=== PATIENT | female | born 1960 | race Asian ===

== ENCOUNTER → 2016-05-14 | Outpatient (CLI) | payer BC | LOC: WI 08:23 | PROVIDERS: ATTEND Physician Assistant | DX: N64.4 Mastodynia (principal) | CPT/HCPCS: 76642; G0204; 77066 ==

== ENCOUNTER 2018-11-07 15:42 | Inpatient (IN) | payer SELFPAY ==
--- NOTE | 2018-11-07 16:06 | ER Document Report ---
ED Medical Screen (RME) - General Stated Complaint: WEAKNESS Time Seen by Provider: 11/07/18 15:59 Primary Care Provider: DEBBIE PRADO PA [Primary Care Provider] - Follow up as needed Mode of Arrival: Medic Information source: Relative, Emergency Med Personnel Notes: This 58-year-old female with history of stroke diabetes sleep apnea and heart murmur presents to the emergency department with complaints of weakness. reports that she was not feeling good this morning. She reports she had leg pain this morning. He reports She is not taking any medications because they do not have any insurance. He reports she does have history of leg pain which she would place heating pads on. Patient is responding to all questions but looks like she does not feel well. EMS BGL 281. Lactic 2.0. I have greeted and performed a rapid initial assessment of this patient. A comprehensive ED assessment and evaluation of the patient, analysis of test results and completion of the medical decision making process will be conducted by additional ED providers. Dictation of this chart was performed using voice recognition software; therefore, there may be some unintended grammatical errors. TRAVEL OUTSIDE OF THE [place] IN LAST 30 DAYS: No - Related Data Allergies/Adverse Reactions: No Known Allergies Allergy (Unverified 03/30/11 05:21) Past Medical History - Past Medical History Cardiac Medical History: Reports: Hx Hypertension Pulmonary Medical History: Denies: Hx Tuberculosis Neurological Medical History: Reports: Hx Cerebrovascular Accident - July 2011 Endocrine Medical History: Reports: Hx Diabetes Mellitus Type 2 Past Surgical History: Denies: Hx Pacemaker - Immunizations Hx Diphtheria, Pertussis, Tetanus Vaccination: Yes Doctor's Discharge - Discharge Referrals: DEBBIE PRADO PA [Primary Care Provider] - Follow up as needed
[2018-11-07 16:28] LABS: VENOUS BLOOD BASE EXCESS 1.6 mmol/L; VENOUS BLOOD HCO3 26.5 mmol/L (20-32); VENOUS BLOOD PCO2 42.9 mmHg (35-63); VENOUS BLOOD PH 7.41 (7.30-7.42)
[2018-11-07 16:30] LABS: ABSOLUTE BASOPHILS # (AUTO) 0.1 10^3/uL (0.0-0.2); ABSOLUTE EOSINOPHILS # (AUTO) 0.2 10^3/uL (0.0-0.6); ABSOLUTE LYMPHOCYTES (AUTO) 2.1 10^3/uL (0.5-4.7); ABSOLUTE MONOCYTES (AUTO) 0.4 10^3/uL (0.1-1.4); ABSOLUTE NEUT (AUTO) 3.5 10^3/uL (1.7-8.2); HEMATOCRIT 41.9 % (36.0-47.0); HEMOGLOBIN 14.2 g/dL (12.0-15.5); LYMPHOCYTES % (AUTO) 33.3 % (13-45); MEAN CORPUSCULAR HGB CONC 33.9 g/dL (32.0-36.0); MEAN CORPUSCULAR VOLUME 89 fl (80-97); MONOCYTES % (AUTO) 7.1 % (3-13); PLATELET COUNT 275 10^3/uL (150-450); RED BLOOD COUNT 4.73 10^6/uL (3.72-5.28); RED CELL DISTRIBUTION WIDTH 13.3 % (11.5-14.0); SEGMENTED NEUTROPHILS % (AUTO) 55.6 % (42-78); TOTAL CELLS COUNTED % (AUTO) 100 %; WHITE BLOOD COUNT 6.3 10^3/uL (4.0-10.5)
[2018-11-07 16:37] LABS: INTERNATIONAL RATION (INR) 1.05; PROTHROMBIN TIME 13.7 SEC (11.4-15.4)
[2018-11-07 16:47] LABS: ALBUMIN 3.9 g/dL (3.5-5.0); ALKALINE PHOSPHATASE 80 U/L (38-126); ANION GAP 11 (5-19); ASPARTATE AMINO TRANSFERASE 49 U/L (14-36); BILIRUBIN,DIRECT 0.1 mg/dL (0.0-0.4); BILIRUBIN,TOTAL 0.6 mg/dL (0.2-1.3); BLOOD UREA NITROGEN 14 mg/dL (7-20); CALCIUM 9.7 mg/dL (8.4-10.2); CARBON DIOXIDE 27 mmol/L (22-30); CHLORIDE 101 mmol/L (98-107); GLUCOSE 256 mg/dL (75-110); POTASSIUM 3.4 mmol/L (3.6-5.0); TOTAL PROTEIN 7.1 g/dL (6.3-8.2)
[2018-11-07 17:56] LABS: APPEARANCE,URINE SLIGHTLY-CLOUDY; BILIRUBIN,URINE NEGATIVE (NEGATIVE); COLOR,URINE YELLOW; GLUCOSE, URINE >=500 mg/dL (NEGATIVE); KETONES,URINE TRACE mg/dL (NEGATIVE); LEUKOCYTE ESTERASE,URINE TRACE (NEGATIVE); NITRITE,URINE NEGATIVE (NEGATIVE); PROTEIN,URINE 30 mg/dL (NEGATIVE); URINE SPECIFIC GRAVITY 1.017; UROBILINOGEN,URINE NEGATIVE mg/dL (<2.0)
[2018-11-07] MEDS ORDERED: NORMAL SALINE 1000 ML 1,000 ML IV ONE (18:00)
[2018-11-07] MEDS ORDERED: HYDRALAZINE HCL 50 MG TABLET PO ONE (18:15)
[2018-11-07] MEDS ORDERED: ATENOLOL 50 MG TABLET PO ONE (18:15)
--- NOTE | 2018-11-07 18:30 | RADIOLOGY REPORT (SQ) ---
EXAM DESCRIPTION: CT HEAD WITHOUT COMPLETED DATE/TIME: 11/07/2018 6:12 pm REASON FOR STUDY: dizziness, difficulty walking COMPARISON: 09/27/2011 TECHNIQUE: Axial images acquired through the brain without intravenous contrast. Images reviewed wit h bone, brain and subdural windows. Images stored on PACS. All CT scanners at this facility use dose modulation, iterative reconstruction, and/or weight based d osing when appropriate to reduce radiation dose to as low as reasonably achievable (ALARA). [facility]: Dose Right [facility]: CareDose [facility]: Dose Right [facility]: Teradose 4D [facility]: [employer] RADIATION DOSE: CT Rad equipment meets quality standard of care and radiation dose reduction techniq ues were employed. CTDIvol: 53.2 mGy. DLP: 991 mGy-cm.. LIMITATIONS: None. FINDINGS: VENTRICLES: Normal size and contour. CEREBRUM: No hemorrhage. No midline shift. Stable appearance of the white matter. No evidence for ac triny infarction. CEREBELLUM: No masses. No hemorrhage. No alteration of density. No evidence for acute infarction. EXTRA-AXIAL SPACES: No fluid collections. ORBITS AND GLOBE: No intra- or extraconal masses. Normal contour of globe without masses. CALVARIUM: No fracture. PARANASAL SINUSES: No fluid or mucosal thickening. SOFT TISSUES: No mass or hematoma. OTHER: No other significant finding. IMPRESSION: NO ACUTE INTRACRANIAL FINDINGS. EVIDENCE OF ACUTE STROKE: NO. TECHNICAL DOCUMENTATION: JOB ID: [id number] Quality ID # [id number]: Final reports with documentation of one or more dose reduction techniques (e.g., Au tomated exposure control, adjustment of the mA and/or kV according to patient size, use of iterative reconstruction technique) 2010 [employer]- All Rights Reserved Reading location - IP/workstation name: [employer]
[2018-11-07 21:03] LABS: ARTERIAL BLOOD BASE EXCESS 2.1 mmol/L; ARTERIAL BLOOD FIO2 ROOM AIR; ARTERIAL BLOOD H2CO3 1.25 mmol/L (1.05-1.35); ARTERIAL BLOOD HCO3 26.7 mmol/L (20-24); ARTERIAL BLOOD O2 SATURATION 95.8 % (94-98); ARTERIAL BLOOD PCO2 41.6 mmHg (35-45); ARTERIAL BLOOD PH 7.43 (7.35-7.45); ARTERIAL BLOOD PO2 77.7 mmHg (80-100)
--- NOTE | 2018-11-07 21:52 | EKG REPORT ---
SEVERITY:- ABNORMAL ECG - SINUS RHYTHM VENTRICULAR PREMATURE COMPLEX LEFT VENTRICULAR HYPERTROPHY : Confirmed by: Kumar Magallon MD 07-Nov-2018 21:51:29
--- NOTE | 2018-11-07 22:47 | ER Document Report ---
ED General - General Chief Complaint: General Weakness Stated Complaint: WEAKNESS Time Seen by Provider: 11/07/18 15:59 Primary Care Provider: DEBBIE PRADO PA [PHYSICIAN SOCIAL MEDIA MARKETING MANAGER] - Follow up as needed Mode of Arrival: Medic Notes: 58-year-old female presents emergency department stating that she woke up dizzy and having double vision this morning and has been getting progressively worse. Patient states that the seeing double actually improves when she puts on her glasses but then it gets worse again. Patient states she is so dizzy she cannot walk. Significant other has brought her in because she has had strokes in the past and this is similar to the way she acted with a stroke in 2012 but somewhat less severe. Patient does have right-sided facial droop however the patient and the significant other state that this is normal and unchanged from baseline. Of note the patient has not seen a primary care physician in over a year and has been slowly running out of all of her medications that she takes for her diabetes, hypertension and hyperlipidemia. TRAVEL OUTSIDE OF THE [place] IN LAST 30 DAYS: No - Related Data Allergies/Adverse Reactions: No Known Allergies Allergy (Unverified 03/30/11 05:21) Past Medical History - General Information source: Patient, Relative, Friend, Emergency Med Personnel - Social History Smoking Status: Former Smoker Chew tobacco use (# tins/day): No Frequency of alcohol use: None Drug Abuse: None Family History: CVA Patient has suicidal ideation: No Patient has homicidal ideation: No - Past Medical History Cardiac Medical History: Reports: Hx Hypertension Pulmonary Medical History: Denies: Hx Tuberculosis Neurological Medical History: Reports: Hx Cerebrovascular Accident - July 2011 Endocrine Medical History: Reports: Hx Diabetes Mellitus Type 2 Past Surgical History: Denies: Hx Pacemaker - Immunizations Hx Diphtheria, Pertussis, Tetanus Vaccination: Yes Hx Pneumococcal Vaccination: 08/02/11 Review of Systems - Review of Systems Constitutional: See HPI, Weakness EENT: See HPI Cardiovascular: See HPI Respiratory: No symptoms reported Neurological/Psychological: See HPI -: Yes All other systems reviewed and negative Physical Exam - Vital signs Vitals: Resp Pulse Ox 7 L 100 11/07/18 16:03 11/07/18 16:03 Interpretation: Hypertensive - Notes Notes: GENERAL: Alert, interacts well. No acute distress. Obese HEAD: Normocephalic, atraumatic EYES: Pupils equal, round and reactive to light, extraocular movements intact. ENT: Oral mucosa moist, tongue midline. NECK: Full range of motion, supple, trachea midline. LUNGS: Clear to auscultation bilaterally, no wheezes, rales or rhonchi, no respiratory distress. HEART: Regular rate and rhythm, no murmurs, gallops, rubs. ABDOMEN: Soft, nontender, nondistended, bowel sounds present in all 4 quadrants. EXTREMITIES: Moves all 4 extremities spontaneously, no edema, radial and dorsalis pedis pulses 2/4 bilaterally. No cyanosis. NEUROLOGICAL: Alert and oriented x3, normal speech, slight right-sided facial droop but normalizes with smile, no disconjugate gaze, 5 out of 5 muscle strength in all 4 extremities, biceps and patellar DTRs 2+ bilaterally. Unable to ambulate more than a few steps and falls to the right even when walking with a walker. PSYCH: Normal mood, normal affect. SKIN: Warm, Dry, normal turgor, no rashes or lesions noted. Course - Re-evaluation Re-evalutation: 11/07/18 22:45 CBC unremarkable, coags normal, venous blood gas unremarkable, CMP shows elevated glucose otherwise unremarkable, troponin indeterminate x2 is 0.34 and 0.38, urinalysis shows glucose and trace ketones but no true signs of infection, it appears contaminated with 8 squamous epithelial cells and trace leukocyte esterase. Blood and urine cultures are pending. CT scan was performed shows no sign of acute stroke. EKG is nonischemic. We did get the patient's glasses as the family member stated that all of her symptoms resolved when she wore her glasses however when we tried to have her put her glasses on she was very difficult to arouse, did not awaken to painful stimuli until we got an ABG. At that point the patient became more awake. As she slowly woke up more more we did try to ambulate her and she was unable to ambulate more than a few steps without falling to her side even while using a walker and wearing her glasses. ABG was obtained to make sure that she did not have any underlying CO2 retention. This was relatively normal. Accu-Chek did not reveal any hypoxia. At this point I am not certain why the patient has had 2 unresponsive episodes while in the emergency department and why she is having difficulty ambulating. I have discussed the patient with Dr. Del Cid who agrees to admit the patient to his service in the IMCU for further investigation of her altered mental status, fluctuating level of consciousness and difficulty ambulating. - Vital Signs Vital signs: Temp Pulse Resp BP Pulse Ox 26 H 186/114 H 98 11/07/18 22:02 11/07/18 22:02 11/07/18 22:02 - Laboratory Result Diagrams: 11/07/18 16:00 11/07/18 16:00 Laboratory results interpreted by me: 11/07/18 11/07/18 11/07/18 16:00 16:25 17:31 ABG pO2 ABG HCO3 ABG Total CO2 Potassium 3.4 L Glucose 256 H POC Glucose 243 H AST 49 H Urine Protein 30 H Urine Glucose (UA) >=500 H Urine Ketones TRACE H Ur Leukocyte Esterase TRACE H 11/07/18 11/07/18 20:16 20:55 ABG pO2 77.7 L ABG HCO3 26.7 H ABG Total CO2 28.0 H Potassium Glucose POC Glucose 207 H AST Urine Protein Urine Glucose (UA) Urine Ketones Ur Leukocyte Esterase - EKG Interpretation by Me Additional EKG results interpreted by me: 11/07/18 22:47 EKG shows sinus rhythm at a rate of 83, normal axis, normal intervals, LVH, 1 PVC, no ST segment elevations or depressions per my interpretation. Discharge - Discharge Clinical Impression: Dizziness, Unable to ambulate Altered mental status Qualifiers: Altered mental status type: somnolence Qualified Code(s): R40.0 - Somnolence Condition: Fair Disposition: ADMITTED INPATIENT Admitting Provider: Maria Eugenia (Hospitalist) Unit Admitted: [facility] Referrals: DEBBIE PRADO PA [PHYSICIAN SOCIAL MEDIA MARKETING MANAGER] - Follow up as needed
[2018-11-07] MEDS ORDERED: MAGNESIUM HYDROXIDE SUSP 30 ML UDCUP PO PRN (23:36)
[2018-11-07] MEDS ORDERED: TEMAZEPAM 15 MG CAPSULE PO PRN (23:36)
[2018-11-07] MEDS ORDERED: TRAMADOL HCL 50 MG TABLET PO PRN (23:36)
[2018-11-07] MEDS ORDERED: DOCUSATE SODIUM 100 MG CAPSULE PO PRN (23:36)
[2018-11-07] MEDS ORDERED: ONDANSETRON HCL INJ/PF 4 MG/2 ML SDV IV PRN (23:36)
[2018-11-07] MEDS ORDERED: LABETALOL HCL INJ 20 MG/4 ML DISP.SYRIN IV PRN (23:36)
[2018-11-07] MEDS ORDERED: NALBUPHINE HCL INJ 10 MG/1 ML AMPULE IV PRN (23:44)
[2018-11-07] MEDS ORDERED: DEXTROSE 40% GEL 15 GM TUBE PO PRN ×2 (23:45)
[2018-11-07] MEDS ORDERED: GLUCAGON,HUMAN RECOMB 1 MG INJ IM PRN (23:45)
[2018-11-07] MEDS ORDERED: DEXTROSE 50%-WATER 25 GM/50 ML DISP.SYRIN IV PRN ×2 (23:45)
[2018-11-08] MEDS ORDERED: NALBUPHINE HCL INJ 10 MG/1 ML AMPULE IV PRN ×2 (00:29)
[2018-11-08 00:58] LABS: FREE T3 3.11 pg/mL (2.77-5.27); FREE T4 (FREE THYROXINE) 1.12 ng/dL (0.78-2.19)
[2018-11-08 02:30] LABS: CREATINE KINASE MB 0.37 ng/mL (<4.55); TROPONIN I 0.037 ng/mL
[2018-11-08] MEDS ORDERED: SCOPOLAMINE HYDROBROMIDE 1.5 MG PATCH.TD72 TD ONE (05:42)
--- NOTE | 2018-11-08 05:50 | PDOC H&P ---
History of Present Illness Admission Date/PCP: 11/07/2018 22:32 No local PCP Patient complains of: Dizziness History of Present Illness: CAMPOS BROUSSARD is a 58 year old female who presented to the emergency room with acute dizziness. The patient and her family admit that she woke this morning with dizziness and unsteadiness with inability to use her walker due to falling. Her dizziness was accompanied by double vision, moderate generalized weakness, intermittent leg pains and transient episodes of decreased responsiveness. She denies other accompanying or associated signs and symptoms. She admits similar symptoms previously with strokes. She denies identification of any aggravating or ameliorating factors for her weakness, but admits her double vision improves when she uses her prescription glasses. In the emergency room her unsteadiness with attempts at standing or walking with her walker persisted and she had several episodes of decreased responsiveness lasting for several minutes and resolving spontaneously. Her CT scan showed no acute intracranial hemorrhage or evidence of acute stroke. Her chemistry evaluation and CBC were unremarkable with the exception of an elevated blood glucose. ABGs revealed mild hypoxia. Patient was subsequently admitted to the hospital for further evaluation and treatment per the stroke protocol on IM. Past Medical History Cardiac Medical History: Reports: Hyperlipidema, Hypertension, Heart Murmur Denies: Coronary Artery Disease, Myocardial Infarction Pulmonary Medical History: Reports: Sleep Apnea Denies: Asthma, Chronic Obstructive Pulmonary Disease (COPD), Respiratory Failure, Tuberculosis EENT Medical History: Denies: Cataracts, Ears - Hearing aids Neurological Medical History: Reports: Ischemic CVA Denies: Hemorrhagic CVA, Seizures Endocrine Medical History: Reports: Diabetes Mellitus Type 2 Denies: Diabetes Mellitus Type 1, Hyperthyroidism, Hypothyroidism Renal/ Medical History: Denies: Chronic Kidney Disease, Nephrolithiasis Malignancy Medical History: Reports: None GI Medical History: Denies: Cirrhosis, Crohn's Disease, Hepatitis, Ulcerative Colitis Musculoskeltal Medical History: Denies: Arthritis, Gout Skin Medical History: Denies: Eczema, Psoriasis Psychiatric Medical History: Denies: Alcohol Dependency, Substance Abuse, Tobacco Dependency Traumatic Medical History: Reports: None Hematology: Denies: Anemia, Bleeding Tendencies Infectious Medical History: Reports: None Past Surgical History Past Surgical History: Reports: None Social History Information Source: Patient, Relative Lives with: Spouse/Significant other Smoking Status: Never Smoker Frequency of Alcohol Use: None Hx Recreational Drug Use: No Drugs: None Hx Prescription Drug Abuse: No - Advance Directive Resuscitation Status: Full Code Surrogate healthcare decision maker:: Dylan Broussard Family History Family History: DM, Hypertension. denies: CAD, Malignancy Parental Family History Reviewed: Yes Children Family History Reviewed: No Sibling(s) Family History Reviewed.: Yes Medication/Allergy Home Medications: Acetaminophen [Arthritis Pain Relief] 650 mg PO DAILYP PRN 11/08/18 Aspirin [Aspir-Low] 81 mg PO DAILY 11/08/18 Gabapentin [Neurontin 100 mg Capsule] 100 mg PO BIDP PRN 11/08/18 Metformin HCl 500 mg PO BID 11/08/18 Allergies/Adverse Reactions: No Known Allergies Allergy (Unverified 03/30/11 05:21) Review of Systems Constitutional: PRESENT: as per HPI, weakness. ABSENT: chills, fever(s) Eyes: PRESENT: as per HPI, visual disturbances - Double vision. ABSENT: other - Eye pain Ears: ABSENT: hearing changes, other - Ear pain Nose, Mouth, and Throat: ABSENT: mouth pain, sore throat Cardiovascular: ABSENT: chest pain, palpitations Respiratory: ABSENT: cough, dyspnea Gastrointestinal: ABSENT: abdominal pain, constipation, diarrhea, nausea, vomiting Genitourinary: ABSENT: dysuria, hematuria Musculoskeletal: PRESENT: as per HPI, muscle weakness. ABSENT: back pain, joint swelling Integumentary: ABSENT: pruritus, rash Neurological: PRESENT: as per HPI, dizziness, syncope - Transient episodes of decreased responsiveness. ABSENT: confusion, convulsions, focal weakness, memory loss Psychiatric: ABSENT: anxiety, depression Endocrine: ABSENT: cold intolerance, heat intolerance Hematologic/Lymphatic: ABSENT: easy bleeding, easy bruising Allergic/Immunologic: ABSENT: seasonal rhinorrhea Physical Exam Vital Signs: Temp Pulse Resp BP Pulse Ox 26 H 186/114 H 98 11/07/18 22:02 11/07/18 22:02 11/07/18 22:02 Intake & Output 11/05/18 11/06/18 11/07/18 23:59 23:59 23:59 Intake Total 1000 Balance 1000 General appearance: PRESENT: no acute distress, cooperative, obese Head exam: PRESENT: atraumatic, normocephalic Eye exam: PRESENT: conjunctiva pink, nystagmus. ABSENT: conjunctival injection, scleral icterus Ear exam: PRESENT: normal external ear exam. ABSENT: bleeding, drainage Mouth exam: PRESENT: dry mucosa, neck supple Neck exam: ABSENT: JVD, thyromegaly, tracheal deviation Respiratory exam: PRESENT: clear to auscultation sierra, symmetrical, unlabored Cardiovascular exam: PRESENT: RRR. ABSENT: clicks, gallop, rubs Pulses: PRESENT: normal carotid pulses, normal dorsalis pedis pul Vascular exam: PRESENT: normal capillary refill. ABSENT: pallor GI/Abdominal exam: PRESENT: normal bowel sounds, soft Rectal exam: PRESENT: deferred Extremities exam: ABSENT: joint swelling, pedal edema Musculoskeletal exam: ABSENT: deformity, dislocation Neurological exam: PRESENT: alert, oriented to person, oriented to place, oriented to time, oriented to situation, CN II-XII grossly intact. ABSENT: motor sensory deficit Psychiatric exam: PRESENT: appropriate affect, normal mood Skin exam: PRESENT: dry, intact, warm. ABSENT: jaundice, rash, urticaria Results Laboratory Results: 11/07/18 16:00 11/07/18 16:00 11/07/18 11/07/18 11/07/18 16:00 16:00 16:00 WBC 6.3 RBC 4.73 Hgb 14.2 Hct 41.9 MCV 89 MCH 30.0 MCHC 33.9 RDW 13.3 Plt Count 275 Seg Neutrophils % 55.6 Carbonic Acid HCO3/H2CO3 Ratio ABG pH ABG pCO2 ABG pO2 ABG HCO3 ABG O2 Saturation ABG Base Excess VBG pH VBG pCO2 VBG HCO3 VBG Base Excess FiO2 Sodium 139.1 Potassium 3.4 L Chloride 101 Carbon Dioxide 27 Anion Gap 11 BUN 14 Creatinine 0.65 Est GFR ( Amer) > 60 Glucose 256 H Lactic Acid 1.6 Calcium 9.7 Total Bilirubin 0.6 AST 49 H Alkaline Phosphatase 80 Total Protein 7.1 Albumin 3.9 Urine Color Urine Appearance Urine pH Ur Specific [place] Urine Protein Urine Glucose (UA) Urine Ketones Urine Blood Urine Nitrite Ur Leukocyte Esterase Urine WBC (Auto) Urine RBC (Auto) 11/07/18 11/07/18 11/07/18 16:00 17:31 20:55 WBC RBC Hgb Hct MCV MCH MCHC RDW Plt Count Seg Neutrophils % Carbonic Acid 1.25 HCO3/H2CO3 Ratio 21:1 ABG pH 7.43 ABG pCO2 41.6 ABG pO2 77.7 L ABG HCO3 26.7 H ABG O2 Saturation 95.8 ABG Base Excess 2.1 VBG pH 7.41 VBG pCO2 42.9 VBG HCO3 26.5 VBG Base Excess 1.6 FiO2 ROOM AIR Sodium Potassium Chloride Carbon Dioxide Anion Gap BUN Creatinine Est GFR ( Amer) Glucose Lactic Acid Calcium Total Bilirubin AST Alkaline Phosphatase Total Protein Albumin Urine Color YELLOW Urine Appearance SLIGHTLY-CLOUDY Urine pH 6.0 Ur Specific [place] 1.017 Urine Protein 30 H Urine Glucose (UA) >=500 H Urine Ketones TRACE H Urine Blood NEGATIVE Urine Nitrite NEGATIVE Ur Leukocyte Esterase TRACE H Urine WBC (Auto) 23 Urine RBC (Auto) 9 11/07/18 11/07/18 16:00 19:40 Troponin I 0.034 0.038 Impressions: Head CT 11/07/18 17:38 IMPRESSION: NO ACUTE INTRACRANIAL FINDINGS. EVIDENCE OF ACUTE STROKE: NO. Assessment and Plan - Diagnosis (1) Dizziness Is this a current diagnosis for this admission?: Yes Plan: Patient will be admitted to the stroke protocol on [facility]. He will be treated with Plavix and permissive hypertension control. She will have an MRI of the brain, a carotid Doppler evaluation and an echocardiogram. She will receive OT, PT and speech therapy evaluations. She will be monitored closely on telemetry. She will be treated with a scopolamine transdermal patch. (2) Syncopal episodes Qualifiers: Syncope type: unspecified Qualified Code(s): R55 - Syncope and collapse Is this a current diagnosis for this admission?: Yes Plan: Patient will be observed closely on telemetry monitoring in [facility]. Serial cardiac enzymes will be obtained as will a thyroid profile and serial lactic acids. (3) Cerebrovascular disease Is this a current diagnosis for this admission?: Yes Plan: Patient will be returned to a regimen of Plavix and antihypertensive control. She admits not taking her medicine as directed because she has lost her medical insurance coverage and has not been able to afford her medications so she has been trying to space them out to make them last longer. (4) Diabetes mellitus type 2 in nonobese Is this a current diagnosis for this admission?: Yes Plan: Patient will be treated with a diabetic diet and will be placed on her recommended diabetic medication regiment. Before meals and at bedtime Accu- Cheks will be performed with sliding scale insulin for hyperglycemia and a hypoglycemic protocol in place. Hemoglobin A1c will be obtained to assess current diabetic status. (5) Hypertension Qualifiers: Hypertension type: essential hypertension Qualified Code(s): I10 - Essential (primary) hypertension Is this a current diagnosis for this admission?: Yes Plan: Patient will be put on her recommended antihypertensive regimen. Permissive hypertension will be allowed during the initial phase of her treatment. Her blood pressure was monitored closely throughout her hospital course. (6) Hyperlipidemia Qualifiers: Hyperlipidemia type: unspecified Qualified Code(s): E78.5 - Hyperlipidemia, unspecified Is this a current diagnosis for this admission?: Yes Plan: Patient will be returned to her recommended lipid therapy. A lipid profile will be obtained to assess her current status. - Time Time Spent with patient: 25-34 minutes Medications reviewed and adjusted accordingly: Yes Anticipated discharge: Home - Inpatient Certification Based on my medical assessment, after consideration of the patient's comorb idities, presenting symptoms, or acuity I expect that the services needed warrant INPATIENT care.: Yes I certify that my determination is in accordance with my understanding of Medicare's requirements for reasonable and necessary INPATIENT services [42 CFR 412.3e].: Yes Medical Necessity: Significant Comorbidiites Make Outpatient Treatment Too Risky, Need Close Monitoring Due to Risk of Patient Decompensation, Need For Continuous Telemetry Monitoring, Need for Neurological Checks, Need for Pain Control, Risk of Complication if Not Cared For in Hospital
[2018-11-08] MEDS ORDERED: SCOPOLAMINE HYDROBROMIDE 1.5 MG PATCH.TD72 ONE (06:20)
[2018-11-08] MEDS: HEPARIN SOD (PORCINE) 5,000 UNIT/ML 1 ML VIAL SUBCUT SCH ×3 (06:24→22:13)
[2018-11-08] MEDS: INSULIN REG, HUMAN 100 UNIT/ML 3 ML VIAL (PYX) SUBCUT SCH ×4 (08:06→22:38)
[2018-11-08] MEDS: METFORMIN HCL 500 MG TABLET PO SCH ×2 (08:06→17:01)
[2018-11-08 08:09] LABS: HEMATOCRIT 41.1 % (36.0-47.0); HEMOGLOBIN 13.9 g/dL (12.0-15.5); MEAN CORPUSCULAR HEMOGLOBIN 30.1 pg (27.0-33.4); MEAN CORPUSCULAR HGB CONC 33.9 g/dL (32.0-36.0); MEAN CORPUSCULAR VOLUME 89 fl (80-97); PLATELET COUNT 287 10^3/uL (150-450); RED BLOOD COUNT 4.64 10^6/uL (3.72-5.28); RED CELL DISTRIBUTION WIDTH 13.4 % (11.5-14.0); WHITE BLOOD COUNT 6.9 10^3/uL (4.0-10.5)
[2018-11-08 08:33] LABS: ALBUMIN 3.8 g/dL (3.5-5.0); ALKALINE PHOSPHATASE 78 U/L (38-126); ANION GAP 10 (5-19); ASPARTATE AMINO TRANSFERASE 39 U/L (14-36); BILIRUBIN,DIRECT 0.1 mg/dL (0.0-0.4); BILIRUBIN,TOTAL 0.6 mg/dL (0.2-1.3); BLOOD UREA NITROGEN 16 mg/dL (7-20); CALCIUM 9.4 mg/dL (8.4-10.2); CARBON DIOXIDE 25 mmol/L (22-30); CHLORIDE 102 mmol/L (98-107); CHOLESTEROL 260.58 mg/dL (0-200); CREATINE KINASE 65 U/L (30-135); GLUCOSE 334 mg/dL (75-110); POTASSIUM 3.7 mmol/L (3.6-5.0); TOTAL PROTEIN 6.9 g/dL (6.3-8.2)
[2018-11-08 08:43] LABS: DIRECT LDL 149 mg/dL (<100)
[2018-11-08 08:47] LABS: CREATINE KINASE MB 0.29 ng/mL (<4.55); TROPONIN I 0.034 ng/mL
[2018-11-08 08:50] LABS: TRIGLYCERIDES 586 mg/dL (<150)
--- NOTE | 2018-11-08 09:54 | RADIOLOGY REPORT (SQ) ---
EXAM DESCRIPTION: MRI HEAD WITHOUT COMPLETED DATE/TIME: 11/08/2018 9:38 am REASON FOR STUDY: Acute Dizziness, syncopal episodes COMPARISON: MRI brain 09/27/2011, 07/30/2011 CT brain 11/07/2018, 09/25/2018 TECHNIQUE: Multiplanar imaging includes non-contrasted T1, T2, FLAIR, and diffusion with ADC map seq uences. Images stored on PACS. LIMITATIONS: None. FINDINGS: ANATOMY: No developmental anomalies. Normal vascular flow voids. Pituitary fossa normal. CSF SPACES: Normal in size and contour. No hemorrhage. CEREBRUM and POSTERIOR FOSSA: Old infarcts are present in right thalamus and medial most edge interna l capsule. There is atrophy of the left cerebral peduncle. No MR findings of acute ischemic change. No intracranial acute hemorrhage mass effect or midline mo ft. There is minimal spotty bifrontal and biparietal small vessel ischemic change. Internal auditory canals, cerebello-pontine angles, mastoids normal. DIFFUSION IMAGING: Negative for acute or sub-acute infarction. ORBITS: No masses. Globes normal. PARANASAL SINUSES: No fluid levels. Mucosa normal. OTHER: No other significant finding. IMPRESSION: No acute findings. Old infarct in the anterior right thalamus/medial aspect internal ca psule with atrophy of the left cerebral peduncle. EVIDENCE OF ACUTE STROKE: NO. TECHNICAL DOCUMENTATION: JOB ID: [id number] [employer]- All Rights Reserved Reading location - IP/workstation name: [email or web address]
[2018-11-08] MEDS: FAMOTIDINE 20 MG TABLET PO SCH ×2 (10:50→22:14)
[2018-11-08] MEDS: CLOPIDOGREL BISULFATE 75 MG TABLET PO SCH (10:51)
[2018-11-08] MEDS: SPIRONOLACTONE 25 MG TABLET PO SCH (12:38)
[2018-11-08] MEDS: LOSARTAN POTASSIUM 50 MG TABLET PO SCH (12:38)
[2018-11-08] MEDS: METOPROLOL SUCCINATE 50 MG TAB.SR.24H PO SCH (13:17)
--- NOTE | 2018-11-08 16:26 | PDOC PROGRESS REPORT ---
Subjective Progress Note for:: 11/08/18 Subjective:: 11/09/[id number] female who was admitted through the emergency room room for dizziness he was also unsteady with walking diplopia. Patient and her admit to noncompliance with medication not been taking her blood pressure medicine or her Plavix for at least 14 months due to lack of insurance Patient has a past medical history of previous CVA. MRI scan done today no acute CVA although there is indication of previous infarct in the anterior right thalamic internal capsule with atrophy of the left cerebellar peduncal Reason For Visit: ACUTE DIZZINESS, TRANSIENT SYNCOPAL EPISODES Physical Exam Vital Signs: Temp Pulse Resp BP Pulse Ox 98.0 F 70 20 169/81 H 98 11/08/18 11:31 11/08/18 14:00 11/08/18 12:00 11/08/18 12:00 11/08/18 12:00 Intake & Output 11/07/18 11/08/18 11/09/18 06:59 06:59 06:59 Intake Total 1240 Balance 1240 Weight 106.3 kg General appearance: PRESENT: no acute distress, other - In bed no distress Respiratory exam: PRESENT: clear to auscultation sierra. ABSENT: rales, rhonchi, wheezes Cardiovascular exam: PRESENT: RRR. 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 No facial weakness. No focal deficits. ABSENT: motor sensory deficit Psychiatric exam: PRESENT: appropriate affect, normal mood, other - She is in good spirits smiling laughing talking. is in the room giving the history. ABSENT: homicidal ideation, suicidal ideation Results Laboratory Results: 11/08/18 07:40 11/08/18 07:40 11/07/18 11/07/18 11/07/18 16:00 16:00 16:00 WBC 6.3 RBC 4.73 Hgb 14.2 Hct 41.9 MCV 89 MCH 30.0 MCHC 33.9 RDW 13.3 Plt Count 275 Seg Neutrophils % 55.6 Carbonic Acid HCO3/H2CO3 Ratio ABG pH ABG pCO2 ABG pO2 ABG HCO3 ABG O2 Saturation ABG Base Excess VBG pH VBG pCO2 VBG HCO3 VBG Base Excess FiO2 Sodium 139.1 Potassium 3.4 L Chloride 101 Carbon Dioxide 27 Anion Gap 11 BUN 14 Creatinine 0.65 Est GFR ( Amer) > 60 Glucose 256 H Lactic Acid 1.6 Calcium 9.7 Total Bilirubin 0.6 AST 49 H Alkaline Phosphatase 80 Total Protein 7.1 Albumin 3.9 Triglycerides Cholesterol LDL Cholesterol Direct HDL Cholesterol TSH Free T4 Free T3 pg/mL Urine Color Urine Appearance Urine pH Ur Specific [place] Urine Protein Urine Glucose (UA) Urine Ketones Urine Blood Urine Nitrite Ur Leukocyte Esterase Urine WBC (Auto) Urine RBC (Auto) 11/07/18 11/07/18 11/07/18 16:00 17:31 19:40 WBC RBC Hgb Hct MCV MCH MCHC RDW Plt Count Seg Neutrophils % Carbonic Acid HCO3/H2CO3 Ratio ABG pH ABG pCO2 ABG pO2 ABG HCO3 ABG O2 Saturation ABG Base Excess VBG pH 7.41 VBG pCO2 42.9 VBG HCO3 26.5 VBG Base Excess 1.6 FiO2 Sodium Potassium Chloride Carbon Dioxide Anion Gap BUN Creatinine Est GFR ( Amer) Glucose Lactic Acid Calcium Total Bilirubin AST Alkaline Phosphatase Total Protein Albumin Triglycerides Cholesterol LDL Cholesterol Direct HDL Cholesterol TSH Free T4 1.12 Free T3 pg/mL 3.11 Urine Color YELLOW Urine Appearance SLIGHTLY-CLOUDY Urine pH 6.0 Ur Specific [place] 1.017 Urine Protein 30 H Urine Glucose (UA) >=500 H Urine Ketones TRACE H Urine Blood NEGATIVE Urine Nitrite NEGATIVE Ur Leukocyte Esterase TRACE H Urine WBC (Auto) 23 Urine RBC (Auto) 9 11/07/18 11/08/18 11/08/18 20:55 00:36 04:09 WBC RBC Hgb Hct MCV MCH MCHC RDW Plt Count Seg Neutrophils % Carbonic Acid 1.25 HCO3/H2CO3 Ratio 21:1 ABG pH 7.43 ABG pCO2 41.6 ABG pO2 77.7 L ABG HCO3 26.7 H ABG O2 Saturation 95.8 ABG Base Excess 2.1 VBG pH VBG pCO2 VBG HCO3 VBG Base Excess FiO2 ROOM AIR Sodium Potassium Chloride Carbon Dioxide Anion Gap BUN Creatinine Est GFR ( Amer) Glucose Lactic Acid 2.0 1.7 Calcium Total Bilirubin AST Alkaline Phosphatase Total Protein Albumin Triglycerides Cholesterol LDL Cholesterol Direct HDL Cholesterol TSH Free T4 Free T3 pg/mL Urine Color Urine Appearance Urine pH Ur Specific [place] Urine Protein Urine Glucose (UA) Urine Ketones Urine Blood Urine Nitrite Ur Leukocyte Esterase Urine WBC (Auto) Urine RBC (Auto) 11/08/18 11/08/18 11/08/18 07:40 07:40 07:40 WBC 6.9 RBC 4.64 Hgb 13.9 Hct 41.1 MCV 89 MCH 30.1 MCHC 33.9 RDW 13.4 Plt Count 287 Seg Neutrophils % Carbonic Acid HCO3/H2CO3 Ratio ABG pH ABG pCO2 ABG pO2 ABG HCO3 ABG O2 Saturation ABG Base Excess VBG pH VBG pCO2 VBG HCO3 VBG Base Excess FiO2 Sodium 137.3 Potassium 3.7 Chloride 102 Carbon Dioxide 25 Anion Gap 10 BUN 16 Creatinine 0.72 Est GFR ( Amer) > 60 Glucose 334 H Lactic Acid Calcium 9.4 Total Bilirubin 0.6 AST 39 H Alkaline Phosphatase 78 Total Protein 6.9 Albumin 3.8 Triglycerides 586 H Cholesterol 260.58 H LDL Cholesterol Direct 149 H HDL Cholesterol 32 L TSH 1.78 Free T4 Free T3 pg/mL Urine Color Urine Appearance Urine pH Ur Specific [place] Urine Protein Urine Glucose (UA) Urine Ketones Urine Blood Urine Nitrite Ur Leukocyte Esterase Urine WBC (Auto) Urine RBC (Auto) 11/08/18 07:40 WBC RBC Hgb Hct MCV MCH MCHC RDW Plt Count Seg Neutrophils % Carbonic Acid HCO3/H2CO3 Ratio ABG pH ABG pCO2 ABG pO2 ABG HCO3 ABG O2 Saturation ABG Base Excess VBG pH VBG pCO2 VBG HCO3 VBG Base Excess FiO2 Sodium Potassium Chloride Carbon Dioxide Anion Gap BUN Creatinine Est GFR ( Amer) Glucose Lactic Acid 2.1 Calcium Total Bilirubin AST Alkaline Phosphatase Total Protein Albumin Triglycerides Cholesterol LDL Cholesterol Direct HDL Cholesterol TSH Free T4 Free T3 pg/mL Urine Color Urine Appearance Urine pH Ur Specific [place] Urine Protein Urine Glucose (UA) Urine Ketones Urine Blood Urine Nitrite Ur Leukocyte Esterase Urine WBC (Auto) Urine RBC (Auto) 11/07/18 11/07/18 11/07/18 16:00 19:40 19:40 Creatine Kinase 53 CK-MB (CK-2) Troponin I 0.034 0.038 11/07/18 11/08/18 11/08/18 19:40 01:50 01:50 Creatine Kinase 67 CK-MB (CK-2) 0.35 0.37 Troponin I Cancelled 0.037 11/08/18 11/08/18 07:40 07:40 Creatine Kinase 65 CK-MB (CK-2) 0.29 Troponin I 0.034 Impressions: Head CT 11/07/18 17:38 IMPRESSION: NO ACUTE INTRACRANIAL FINDINGS. EVIDENCE OF ACUTE STROKE: NO. Head MRI 11/08/18 00:00 IMPRESSION: No acute findings. Old infarct in the anterior right thalamus/medial aspect internal capsule with atrophy of the left cerebral peduncle. EVIDENCE OF ACUTE STROKE: NO. Assessment and Plan - Diagnosis (1) Cerebrovascular disease Is this a current diagnosis for this admission?: Yes Plan: Patient will be returned to a regimen of Plavix and antihypertensive control. She admits not taking her medicine as directed because she has lost her medical insurance coverage and has not been able to afford her medications so she has been trying to space them out to make them last longer. 11/08/2018 will be placed back on her Plavix well as low-dose aspirin 81 mg. MRI scan is been done today and carotid Dopplers and echo are pending (2) Diabetes mellitus type 2 in nonobese Is this a current diagnosis for this admission?: Yes Plan: Patient will be treated with a diabetic diet and will be placed on her recommended diabetic medication regiment. Before meals and at bedtime Accu- Cheks will be performed with sliding scale insulin for hyperglycemia and a hypoglycemic protocol in place. Hemoglobin A1c will be obtained to assess current diabetic status. 11/08/2018 patient's medication for diabetes includes metformin 500 mg twice daily. Glucose on admission to 56 today is up to 334 Hemoglobin A1c 13.9 patient will be covered with sliding scale. Patient admits to not taking medicine for over a year (3) Diplopia Is this a current diagnosis for this admission?: Yes Plan: Patient's double vision has cleared (4) Hypertension Qualifiers: Hypertension type: essential hypertension Qualified Code(s): I10 - Essential (primary) hypertension Is this a current diagnosis for this admission?: Yes Plan: Patient will be put on her recommended antihypertensive regimen. Permissive hypertension will be allowed during the initial phase of her treatment. Her blood pressure was monitored closely throughout her hospital course. 11/08/2018 patient is on spironolactone 25 mg daily Cozaar 100 mg daily, Toprol XL 100 mg daily blood pressure was greatly elevated on admission 203/113 195/121.. It is come down to about 170/80 now She is has been noticed that her symptoms were present when her blood pressure was elevated - Time Time Spent with patient: 35 or more minutes
[2018-11-08] MEDS: ATORVASTATIN CALCIUM 20 MG TABLET PO SCH ×2 (22:14→22:28)
[2018-11-08 23:00] LABS: ARTERIAL BLOOD BASE EXCESS -2.2 mmol/L; ARTERIAL BLOOD H2CO3 1.13 mmol/L (1.05-1.35); ARTERIAL BLOOD HCO3 22.2 mmol/L (20-24); ARTERIAL BLOOD O2 SATURATION 95.2 % (94-98); ARTERIAL BLOOD PCO2 37.4 mmHg (35-45); ARTERIAL BLOOD PH 7.39 (7.35-7.45); ARTERIAL BLOOD PO2 75.9 mmHg (80-100); ARTERIAL BLOOD TOTAL CO2 23.4 mmol/L (21-25)
[2018-11-08 23:01] LABS: ARTERIAL BLOOD FIO2 21%
[2018-11-09] MEDS: HEPARIN SOD (PORCINE) 5,000 UNIT/ML 1 ML VIAL SUBCUT SCH ×3 (06:03→21:15)
[2018-11-09] MEDS: INSULIN REG, HUMAN 100 UNIT/ML 3 ML VIAL (PYX) SUBCUT SCH ×4 (08:52→21:26)
[2018-11-09] MEDS: METFORMIN HCL 500 MG TABLET PO SCH ×2 (08:53→15:41)
[2018-11-09] MEDS ORDERED: CLONIDINE HCL 0.1 MG TABLET PO PRN (09:30)
--- NOTE | 2018-11-09 10:41 | PDOC PROGRESS REPORT ---
Subjective Progress Note for:: 11/09/18 Subjective:: 11/09/[id number] female who was admitted through the emergency room room for dizziness he was also unsteady with walking diplopia. Patient and her admit to noncompliance with medication not been taking her blood pressure medicine or her Plavix for at least 14 months due to lack of insurance Patient has a past medical history of previous CVA. MRI scan done today no acute CVA although there is indication of previous infarct in the anterior right thalamic internal capsule with atrophy of the left cerebellar peduncal 11/09/2018 patient was asleep this morning on rounds but aroused easily patient states she is feeling better Reason For Visit: ACUTE DIZZINESS, TRANSIENT SYNCOPAL EPISODES Physical Exam Vital Signs: Temp Pulse Resp BP Pulse Ox 98.3 F 60 14 182/84 H 97 11/09/18 01:09 11/09/18 04:00 11/09/18 04:00 11/09/18 04:00 11/09/18 04:00 Intake & Output 11/08/18 11/09/18 11/10/18 06:59 06:59 06:59 Intake Total 1240 895 Output Total 350 Balance 1240 545 Weight 106.3 kg 105.8 kg General appearance: PRESENT: no acute distress Respiratory exam: PRESENT: clear to auscultation sierra. ABSENT: rales, rhonchi, wheezes Cardiovascular exam: PRESENT: RRR. ABSENT: diastolic murmur, rubs, systolic murmur Neurological exam: PRESENT: alert, awake, oriented to person, oriented to place, oriented to time, oriented to situation, CN II-XII grossly intact, other - No focal deficits. ABSENT: motor sensory deficit Psychiatric exam: PRESENT: appropriate affect, normal mood. ABSENT: homicidal ideation, suicidal ideation Results Laboratory Results: 11/08/18 07:40 11/08/18 07:40 11/08/18 22:40 Carbonic Acid 1.13 HCO3/H2CO3 Ratio 19:1 ABG pH 7.39 ABG pCO2 37.4 ABG pO2 75.9 L ABG HCO3 22.2 ABG O2 Saturation 95.2 ABG Base Excess -2.2 FiO2 21% 11/07/18 11/07/18 11/07/18 16:00 19:40 19:40 Creatine Kinase 53 CK-MB (CK-2) Troponin I 0.034 0.038 11/07/18 11/08/18 11/08/18 19:40 01:50 01:50 Creatine Kinase 67 CK-MB (CK-2) 0.35 0.37 Troponin I Cancelled 0.037 11/08/18 11/08/18 07:40 07:40 Creatine Kinase 65 CK-MB (CK-2) 0.29 Troponin I 0.034 Impressions: Head CT 11/07/18 17:38 IMPRESSION: NO ACUTE INTRACRANIAL FINDINGS. EVIDENCE OF ACUTE STROKE: NO. Head MRI 11/08/18 00:00 IMPRESSION: No acute findings. Old infarct in the anterior right thalamus/medial aspect internal capsule with atrophy of the left cerebral peduncle. EVIDENCE OF ACUTE STROKE: NO. Assessment and Plan - Diagnosis (1) Cerebrovascular disease Is this a current diagnosis for this admission?: Yes Plan: Patient will be returned to a regimen of Plavix and antihypertensive control. She admits not taking her medicine as directed because she has lost her medical insurance coverage and has not been able to afford her medications so she has been trying to space them out to make them last longer. 11/08/2018 will be placed back on her Plavix well as low-dose aspirin 81 mg. MRI scan is been done today and carotid Dopplers and echo are pending 11/09/2018 MRI shows no evidence of CVA, clinically patient has no focal deficits.. Carotid Dopplers and echo are pending. Patient on the above medicines. I suspect most of her neurologic symptoms were on the basis of her hypertension and/or her glycemia (2) Diabetes mellitus type 2 in nonobese Is this a current diagnosis for this admission?: Yes Plan: Patient will be treated with a diabetic diet and will be placed on her recommended diabetic medication regiment. Before meals and at bedtime Accu- Cheks will be performed with sliding scale insulin for hyperglycemia and a hypoglycemic protocol in place. Hemoglobin A1c will be obtained to assess current diabetic status. 11/08/2018 patient's medication for diabetes includes metformin 500 mg twice daily. Glucose on admission to 56 today is up to 334 Hemoglobin A1c 13.9 patient will be covered with sliding scale. Patient admits to not taking medicine for over a year 11/09/2018 patient's sugars are out of control as one would expect with a A1c of 13.9. In all likelihood patient will not take her medications when she is discharged from the hospital as she has not been on them for over a year now. Continue to work with a sliding scale as. Patient states that she does not like "needles and will probably not give herself insulin at home. Fingerstick glucose before is 240 (3) Diplopia Is this a current diagnosis for this admission?: Yes Plan: Patient's double vision has cleared 11/09/2018 she has no evidence of diplopia. I suspect most of her neurologic symptoms were on the basis of her hypertension and/or hyperglycemia (4) Hypertension Qualifiers: Hypertension type: essential hypertension Qualified Code(s): I10 - Essential (primary) hypertension Is this a current diagnosis for this admission?: Yes Plan: Patient will be put on her recommended antihypertensive regimen. Permissive hy pertension will be allowed during the initial phase of her treatment. Her blood pressure was monitored closely throughout her hospital course. 11/08/2018 patient is on spironolactone 25 mg daily Cozaar 100 mg daily, Toprol XL 100 mg daily blood pressure was greatly elevated on admission 203/113 195 /121.. It is come down to about 170/80 now She is has been noticed that her symptoms were present when her blood pressure was elevated 11/09/2018 patient has not been on her blood pressure now for over 14 months I doubt patient will be able to afford her medicines when she is discharged. Blood pressures are still elevated on the floor 180 or 190/80. I have added Catapres 0.1 mg p.o. every 8 hours for certain parameters of her blood pressure - Time Time Spent with patient: 35 or more minutes
[2018-11-09] MEDS: METOPROLOL SUCCINATE 50 MG TAB.SR.24H PO SCH (11:52)
[2018-11-09] MEDS: SPIRONOLACTONE 25 MG TABLET PO SCH (11:52)
[2018-11-09] MEDS: FAMOTIDINE 20 MG TABLET PO SCH ×2 (11:52→21:15)
[2018-11-09] MEDS: CLOPIDOGREL BISULFATE 75 MG TABLET PO SCH (11:52)
[2018-11-09] MEDS: LOSARTAN POTASSIUM 50 MG TABLET PO SCH (11:52)
[2018-11-09 13:40] LABS: ANION GAP 15 (5-19); BLOOD UREA NITROGEN 14 mg/dL (7-20); CALCIUM 9.4 mg/dL (8.4-10.2); CARBON DIOXIDE 21 mmol/L (22-30); CHLORIDE 101 mmol/L (98-107); GLUCOSE 279 mg/dL (75-110); POTASSIUM 3.9 mmol/L (3.6-5.0)
--- NOTE | 2018-11-09 14:28 | RADIOLOGY REPORT (SQ) ---
EXAM DESCRIPTION: CAROTID DOPPLER COMPLETED DATE/TIME: 11/09/2018 1:56 pm REASON FOR STUDY: Acute Dizziness, syncopal episodes COMPARISON: None. TECHNIQUE: Grayscale ultrasound, Doppler velocity and spectra, and color Doppler images acquired of the extra-cranial carotid and vertebral arteries. Images stored on PACS. LIMITATIONS: None. FINDINGS: RIGHT CAROTID CCA Velocities: Within normal limits. ICA Velocities Peak systolic 0.43 m/s. End diastolic 0.16 m/s. Proximal ICA/CCA peak systolic ratio 1.59. Spectra normal. No significant plaque. LEFT CAROTID CCA Velocities: Within normal limits. ICA Velocities Peak systolic 0.64 m/s. End diastolic 0.24 m/s. Proximal ICA/CCA peak systolic ratio 2.06. Spectra normal. No significant plaque. VERTEBRAL ARTERIES: Antegrade flow. Normal waveforms. SUBCLAVIAN ARTERIES: No finding. OTHER: No other significant finding. IMPRESSION: NO HEMODYNAMICALLY SIGNIFICANT STENOSIS. COMMENT: Quality ID #[id number]: Velocity criteria are extrapolated from the diameter data as defined by t he Society of Radiologists in Ultrasound Consensus Conference. Radiology 2003: 229; 340-346. TECHNICAL DOCUMENTATION: JOB ID: [id number]- All Rights Reserved Reading location - IP/workstation name: [facility]
[2018-11-09] MEDS ORDERED: CYCLOBENZAPRINE HCL 10 MG TABLET PO PRN (14:58)
--- NOTE | 2018-11-09 20:12 | XCELERA REPORT ---
[address] [address] Transthoracic Echocardiogram Report Name: CAMPOS BLISS Age: 58 yrs Gender: Female : 1960 Patient Status: Inpatient Patient Location: [address] [place], [place] [address] Study Date: 11/09/2018 09:42 AM Height: 65 in Weight: 231 lb BSA: 2.1 m2 Procedure: A two-dimensional transthoracic echocardiogram with color flow and Doppler was performed. The study was technically difficult with many images being suboptimal in quality. The study was technically limited with all images being suboptimal in quality. Reason For Study: Acute Dizziness, syncopal episodes History: Acute Dizziness, syncopal episodes. Ordering Physician: RAJ STANTON Performed By: Deena Price Interpretation Summary There is no obvious cardiac source of embolus noted on this transthoracic echocardiogram. Follow-up with a [facility] is suggested if cardiac source is still suspected. The left ventricle is normal in size. There is mild concentric left ventricular hypertrophy. LV EF is > than 60% The left ventricular ejection fraction is within normal limits. Doppler measurements suggest impaired left ventricular relaxation, which is associated with grade I/IV or mild diastolic dysfunction The left ventricular wall motion is normal. There is no thrombus. Cannot assess ASD ,VSD , or PFO. The right ventricle is not well visualized secondary to technical limitations Right atrium not well visualized secondary to technical limitations The left atrial size is normal. There is no evidence of mitral valve prolapse. There is no vegetation seen on the mitral valve. There is no mitral valve stenosis. There is a trace amount of mitral regurgitation There is no aortic valvular vegetation. There is aortic sclerosis without aortic stenosis. There is no LVOT obstruction. There is a trace amount of aortic regurgitation There is no tricuspid stenosis. There is a trace amount of tricuspid regurgitation Tricuspid regurgitation jet envelope not well defined to measure RV systolic pressure accurately. The pulmonic valve is not well visualized. The aortic root is not well visualized but is probably normal size. The inferior vena cava was not visualized There is no pericardial effusion. There is no obvious cardiac source of embolus noted on this transthoracic echocardiogram. Follow-up with a [facility] is suggested if cardiac source is still suspected MMode/2D Measurements & Calculations RVDd: 2.8 cm LVIDd: 5.6 cm FS: 38.6 % Ao root diam: 3.1 cm IVSd: 0.87 cm LVIDs: 3.5 cm EDV(Teich): LVPWd: 1.3 cm 156.5 ml Ao root area: ESV(Teich): 7.4 cm2 49.6 ml EF(Teich): 68.3 % EDV(MOD-sp4): SV(MOD-sp4): 119.7 ml 62.5 ml ESV(MOD-sp4): 57.2 ml EF(MOD-sp4): 52.2 % Doppler Measurements & Calculations MV E max helga: MV dec slope: Ao V2 max: AI max helga: 73.3 cm/sec 156.1 cm/sec 369.1 cm/sec MV A max helga: 303.0 cm/sec2 Ao max PG: AI max P.5 mmHg 107.7 cm/sec MV dec time: 9.7 mmHg AI dec slope: MV E/A: 0.68 0.24 sec 192.0 cm/sec2 AI P1/2t: 563.0 msec LV V1 max PG: PA V2 max: 3.0 mmHg 81.5 cm/sec LV V1 max: PA max P.7 mmHg 86.1 cm/sec Left Ventricle The left ventricle is normal in size. There is mild concentric left ventricular hypertrophy. LV EF is > than 60%. The left ventricular ejection fraction is within normal limits. Doppler measurements suggest impaired left ventricular relaxation, which is associated with grade I/IV or mild diastolic dysfunction. The left ventricular wall motion is normal. There is no thrombus. Cannot assess ASD ,VSD , or PFO. Right Ventricle The right ventricle is not well visualized secondary to technical limitations. Atria Right atrium not well visualized secondary to technical limitations. The left atrial size is normal. Mitral Valve There is no evidence of mitral valve prolapse. There is no vegetation seen on the mitral valve. There is no mitral valve stenosis. There is a trace amount of mitral regurgitation. Aortic Valve There is no aortic valvular vegetation. There is aortic sclerosis without aortic stenosis. There is no LVOT obstruction. There is a trace amount of aortic regurgitation. Tricuspid Valve There is no tricuspid stenosis. There is a trace amount of tricuspid regurgitation. Tricuspid regurgitation jet envelope not well defined to measure RV systolic pressure accurately. Pulmonic Valve The pulmonic valve is not well visualized. Great Vessels The aortic root is not well visualized but is probably normal size. The inferior vena cava was not visualized. Effusions There is no pericardial effusion. : RAJ STANTON, [place]om[place]
[2018-11-09] MEDS: ATORVASTATIN CALCIUM 40 MG TABLET PO SCH (21:15)
[2018-11-10] MEDS: HEPARIN SOD (PORCINE) 5,000 UNIT/ML 1 ML VIAL SUBCUT SCH ×3 (06:43→21:41)
[2018-11-10] MEDS: INSULIN REG, HUMAN 100 UNIT/ML 3 ML VIAL (PYX) SUBCUT SCH ×4 (08:41→21:41)
[2018-11-10] MEDS: METFORMIN HCL 500 MG TABLET PO SCH ×2 (08:42→18:04)
[2018-11-10] MEDS: CLOPIDOGREL BISULFATE 75 MG TABLET PO SCH (09:53)
[2018-11-10] MEDS: LOSARTAN POTASSIUM 50 MG TABLET PO SCH (09:53)
[2018-11-10] MEDS: FAMOTIDINE 20 MG TABLET PO SCH ×2 (09:53→21:41)
[2018-11-10] MEDS: METOPROLOL SUCCINATE 50 MG TAB.SR.24H PO SCH (09:53)
[2018-11-10] MEDS: SPIRONOLACTONE 25 MG TABLET PO SCH (09:53)
[2018-11-10] MEDS: HUM INSULIN NPH/REG INSULIN HM 100 UNIT/1 ML 3 ML SUBCUT SCH ×2 (11:41→18:05)
--- NOTE | 2018-11-10 17:51 | PDOC PROGRESS REPORT ---
Subjective Progress Note for:: 11/10/18 Subjective:: This is a 58-year-old male with hypertension, insulin-dependent diabetes mellitus and prior CVA who presented with dizziness and weakness. She was admitted for a possible CVA. MRI did not show an acute CVA but did show an old infarct in the right thalamic area. Patient and family reports that she has been off her insulin and her antihypertensives for the past 14 months because they lost health insurance. Upon encounter, she denies chest pain or shortness of breath. Blood sugars have been poorly controlled. She had a fever her of 102 F this morning. Reason For Visit: ACUTE DIZZINESS, TRANSIENT SYNCOPAL EPISODES Physical Exam Vital Signs: Temp Pulse Resp BP Pulse Ox 99.2 F 100 17 150/60 H 95 11/10/18 07:37 11/10/18 14:00 11/10/18 07:37 11/10/18 08:00 11/10/18 07:37 Intake & Output 11/09/18 11/10/18 11/11/18 06:59 06:59 06:59 Intake Total 895 600 720 Output Total 350 125 Balance 545 475 720 Weight 233 lb 3.985 oz 231 lb 0.711 oz General appearance: PRESENT: no acute distress, well-developed, well-nourished Head exam: PRESENT: atraumatic, normocephalic Eye exam: PRESENT: conjunctiva pink, EOMI, PERRLA. ABSENT: scleral icterus Ear exam: PRESENT: normal external ear exam Mouth exam: PRESENT: moist, tongue midline Neck exam: ABSENT: carotid bruit, JVD, lymphadenopathy, thyromegaly Respiratory exam: PRESENT: clear to auscultation sierra. ABSENT: rales, rhonchi, wheezes Cardiovascular exam: PRESENT: RRR. ABSENT: diastolic murmur, rubs, systolic murmur Pulses: PRESENT: normal dorsalis pedis pul GI/Abdominal exam: PRESENT: normal bowel sounds, soft. ABSENT: distended, guarding, mass, organolmegaly, rebound, tenderness Rectal exam: PRESENT: deferred Extremities exam: PRESENT: full ROM. ABSENT: calf tenderness, clubbing, pedal edema Neurological exam: PRESENT: alert, awake, oriented to person, oriented to place, oriented to time, oriented to situation, CN II-XII grossly intact. ABSENT: motor sensory deficit Results Laboratory Results: 11/08/18 07:40 11/09/18 12:53 11/07/18 17:31 Clean Catch Midstream Urine Culture - Final Staphylococcus Aureus Group B Streptococcus 11/07/18 11/07/18 11/07/18 16:00 19:40 19:40 Creatine Kinase 53 CK-MB (CK-2) Troponin I 0.034 0.038 11/07/18 11/08/18 11/08/18 19:40 01:50 01:50 Creatine Kinase 67 CK-MB (CK-2) 0.35 0.37 Troponin I Cancelled 0.037 11/08/18 11/08/18 07:40 07:40 Creatine Kinase 65 CK-MB (CK-2) 0.29 Troponin I 0.034 Impressions: Head CT 11/07/18 17:38 IMPRESSION: NO ACUTE INTRACRANIAL FINDINGS. EVIDENCE OF ACUTE STROKE: NO. Head MRI 11/08/18 00:00 IMPRESSION: No acute findings. Old infarct in the anterior right thalamus/medial aspect internal capsule with atrophy of the left cerebral pedu ncle. EVIDENCE OF ACUTE STROKE: NO. Carotid Doppler Study 11/09/18 00:00 IMPRESSION: NO HEMODYNAMICALLY SIGNIFICANT STENOSIS. Assessment and Plan - Diagnosis (1) TIA (transient ischemic attack) Is this a current diagnosis for this admission?: Yes Plan: CVA work-up was unremarkable aside from an old thalamic infarct. Her symptoms were likely related to her severely elevated blood pressures on presentation. Continue Plavix, statin and antihypertensives. (2) IDDM (insulin dependent diabetes mellitus) Is this a current diagnosis for this admission?: Yes Plan: She says she was on insulin before but stopped taking it as they were not able to afford the medication. A1c is 13.9. We will restart patient on insulin. (3) Hyperlipidemia Qualifiers: Hyperlipidemia type: unspecified Qualified Code(s): E78.5 - Hyperlipidemia, unspecified Is this a current diagnosis for this admission?: Yes Plan: Continue statin. (4) Hypertension Qualifiers: Hypertension type: essential hypertension Qualified Code(s): I10 - Essential (primary) hypertension Is this a current diagnosis for this admission?: Yes Plan: Started on losartan, metoprolol and spironolactone. (5) Hypertensive urgency Is this a current diagnosis for this admission?: Yes Plan: As per #3. (6) UTI (urinary tract infection) Is this a current diagnosis for this admission?: Yes Plan: She had a fever of 102 this morning. Start Rocephin. - Time Time Spent with patient: 25-34 minutes
[2018-11-10] MEDS: ACETAMINOPHEN 325 MG TABLET PO PRN (18:04)
[2018-11-10] MEDS: CEFTRIAXONE 1 GM/D5W RTU 1 GM/50 ML RTUPB IV SCH (18:06)
[2018-11-10] MEDS: ATORVASTATIN CALCIUM 40 MG TABLET PO SCH (21:41)
[2018-11-11] MEDS: HEPARIN SOD (PORCINE) 5,000 UNIT/ML 1 ML VIAL SUBCUT SCH ×2 (05:41→14:58)
[2018-11-11] MEDS: ACETAMINOPHEN 325 MG TABLET PO PRN (07:45)
[2018-11-11] MEDS: INSULIN REG, HUMAN 100 UNIT/ML 3 ML VIAL (PYX) SUBCUT SCH ×2 (08:33→11:57)
[2018-11-11] MEDS: METFORMIN HCL 500 MG TABLET PO SCH (08:33)
[2018-11-11] MEDS: HUM INSULIN NPH/REG INSULIN HM 100 UNIT/1 ML 3 ML SUBCUT SCH (08:33)
[2018-11-11] MEDS: FAMOTIDINE 20 MG TABLET PO SCH (09:46)
[2018-11-11] MEDS: LOSARTAN POTASSIUM 50 MG TABLET PO SCH (09:46)
[2018-11-11] MEDS: CEFTRIAXONE 1 GM/D5W RTU 1 GM/50 ML RTUPB IV SCH (09:46)
[2018-11-11] MEDS: METOPROLOL SUCCINATE 50 MG TAB.SR.24H PO SCH (09:46)
[2018-11-11] MEDS: CLOPIDOGREL BISULFATE 75 MG TABLET PO SCH (09:46)
[2018-11-11] MEDS: SPIRONOLACTONE 25 MG TABLET PO SCH (09:46)
[2018-11-11 10:52] LABS: ANION GAP 15 (5-19); BLOOD UREA NITROGEN 15 mg/dL (7-20); CALCIUM 9.6 mg/dL (8.4-10.2); CARBON DIOXIDE 22 mmol/L (22-30); CHLORIDE 98 mmol/L (98-107); GLUCOSE 324 mg/dL (75-110); POTASSIUM 3.4 mmol/L (3.6-5.0)
[2018-11-11] MEDS ORDERED: POTASSIUM CHLORIDE 10 MEQ CAPSULE.ER PO ONE (11:20)
[2018-11-11 14:14] VITALS: BP 166/100
--- NOTE | 2018-11-13 17:10 | PDOC DISCHARGE SUMMARY ---
Impression - Admit/DC Date/PCP Admission Date/Primary Care Provider: 11/07/18 23:15 Discharge Date: 11/11/18 - Discharge Diagnosis (1) TIA (transient ischemic attack) Is this a current diagnosis for this admission?: Yes (2) IDDM (insulin dependent diabetes mellitus) Is this a current diagnosis for this admission?: Yes (3) Hyperlipidemia Is this a current diagnosis for this admission?: Yes (4) Hypertension Is this a current diagnosis for this admission?: Yes (5) Hypertensive urgency Is this a current diagnosis for this admission?: Yes (6) UTI (urinary tract infection) Is this a current diagnosis for this admission?: Yes - Additional Information Resuscitation Status: Full Code Discharge Diet: Diabetic Discharge Activity: Activity As Tolerated, Balance Activity w/Rest Referrals: DEBBIE PRADO PA [PHYSICIAN [employer]RO[employer] ATTENDANT] - 11/18/18 10:00 am Prescriptions: Spironolactone [Aldactone 25 mg Tablet] 25 mg PO DAILY #60 tablet Aspirin [Aspir-Low] 81 mg PO DAILY #60 tab Losartan Potassium [Cozaar 100 mg Tablet] 100 mg PO DAILY #30 tablet Lancets/Blood Glucose Strips [Fora [id number] Strp-Lnct] 1 each MC BID #2 combo..pkg Metformin HCl [Glucophage 500 mg Tablet] 1,000 mg PO BIDACBS #60 tablet Hum Insulin NPH/Reg Insulin Hm [Insulin 70-30 (NPH/Reg) 100 unit/mL] 10 unit SUBCUT BIDACBS #1 vial Pen Needle, Diabetic [Insulin Pen Needle] 1 each MC BID #100 dis.needle Cephalexin Monohydrate [Keflex 500 mg Capsule] 500 mg PO Q12 5 Days #10 capsule Atorvastatin Calcium [Lipitor 40 mg Tablet] 40 mg PO QHS #30 tablet Gabapentin [Neurontin 100 mg Capsule] 100 mg PO BIDP PRN #30 cap PRN Reason: Metoprolol Succinate [Toprol Xl 50 mg Tab.sr] 100 mg PO DAILY #60 tab.sr.24h Home Medications: Acetaminophen [Arthritis Pain Relief] 650 mg PO DAILYP PRN 11/08/18 Aspirin [Aspir-Low] 81 mg PO DAILY #60 tab 11/11/18 Atorvastatin Calcium [Lipitor 40 mg Tablet] 40 mg PO QHS #30 tablet 11/11/18 Gabapentin [Neurontin 100 mg Capsule] 100 mg PO BIDP PRN #30 cap 11/11/18 Hum Insulin NPH/Reg Insulin Hm [Insulin 70-30 (NPH/Reg) 100 unit/mL] 10 unit SUBCUT BIDACBS #1 vial 11/11/18 Lancets/Blood Glucose Strips [Fora [id number] Strp-Lnct] 1 each MC BID #2 combo..pkg 11/11/18 Losartan Potassium [Cozaar 100 mg Tablet] 100 mg PO DAILY #30 tablet 11/11/18 Metformin HCl [Glucophage 500 mg Tablet] 1,000 mg PO BIDACBS #60 tablet 11/11/18 Metoprolol Succinate [Toprol Xl 50 mg Tab.sr] 100 mg PO DAILY #60 tab.sr.24h 11/11/18 Pen Needle, Diabetic [Insulin Pen Needle] 1 each MC BID #100 dis.needle 11/11/18 Spironolactone [Aldactone 25 mg Tablet] 25 mg PO DAILY #60 tablet 11/11/18 Cephalexin Monohydrate [Keflex 500 mg Capsule] 500 mg PO Q12 5 Days #10 capsule 11/13/18 History of Present Illiness History of Present Illness: Admitting hospitalist's H&P: CAMPOS BLISS is a 58 year old female who presented to the emergency room with acute dizziness. The patient and her family admit that she woke this morning with dizziness and unsteadiness with inability to use her walker due to falling. Her dizziness was accompanied by double vision, moderate generalized weakness, intermittent leg pains and transient episodes of decreased responsiveness. She denies other accompanying or associated signs and symptoms. She admits similar symptoms previously with strokes. She denies identification of any aggravating or ameliorating factors for her weakness, but admits her double vision improves when she uses her prescription glasses. In the emergency room her unsteadiness with attempts at standing or walking with her walker persisted and she had several episodes of decreased responsiveness lasting for several minutes and resolving spontaneously. Her CT scan showed no acute intracranial hemorrhage or evidence of acute stroke. Her chemistry evaluation and CBC were unremarkable with the exception of an elevated blood glucose. ABGs revealed mild hypoxia. Patient was subsequently admitted to the hospital for further evaluation and treatment per the stroke protocol on IMCU. Hospital Course Hospital Course: This is a 58-year-old male with hypertension, insulin-dependent diabetes mellitus and prior CVA who presented with dizziness and weakness. She was admitted for a possible CVA. MRI did not show an acute CVA but did show an old infarct in the right thalamic area. Because of her CVA work-up was unremarkable. Patient and family reports that she has been off her insulin and her antihypertensives for the past 14 months because they lost health insurance. Patient was started on aspirin and statin. She was also started on antihypertensive medications including spironolactone and losartan. She was also reinitiated on an insulin-based regimen. He was also started on Rocephin for UTI. She will be discharged on 5 more days of Keflex. Physical Exam Vital Signs: Temp Pulse Resp BP Pulse Ox 98.3 F 92 17 166/100 H 97 11/11/18 14:11 11/11/18 14:11 11/11/18 14:11 11/11/18 14:11 11/11/18 14:11 Intake & Output 11/12/18 11/13/18 11/14/18 06:59 06:59 06:59 Intake Total 410 Balance 410 General appearance: PRESENT: no acute distress, well-developed, well-nourished Head exam: PRESENT: atraumatic, normocephalic Eye exam: PRESENT: conjunctiva pink, EOMI, PERRLA. ABSENT: scleral icterus Ear exam: PRESENT: normal external ear exam Mouth exam: PRESENT: moist, tongue midline Neck exam: ABSENT: carotid bruit, JVD, lymphadenopathy, thyromegaly Respiratory exam: PRESENT: clear to auscultation sierra. ABSENT: rales, rhonchi, wheezes Cardiovascular exam: PRESENT: RRR. ABSENT: diastolic murmur, rubs, systolic murmur Pulses: PRESENT: normal dorsalis pedis pul GI/Abdominal exam: PRESENT: normal bowel sounds, soft. ABSENT: distended, guarding, mass, organolmegaly, rebound, tenderness Rectal exam: PRESENT: deferred Extremities exam: PRESENT: full ROM. ABSENT: calf tenderness, clubbing, pedal edema Neurological exam: PRESENT: alert, awake, oriented to person, oriented to place, oriented to time, oriented to situation, CN II-XII grossly intact. ABSENT: motor sensory deficit Results Laboratory Results: WBC 6.9 10^3/uL (4.0-10.5) 11/08/18 07:40 RBC 4.64 10^6/uL (3.72-5.28) 11/08/18 07:40 Hgb 13.9 g/dL (12.0-15.5) 11/08/18 07:40 Hct 41.1 % (36.0-47.0) 11/08/18 07:40 MCV 89 fl (80-97) 11/08/18 07:40 MCH 30.1 pg (27.0-33.4) 11/08/18 07:40 MCHC 33.9 g/dL (32.0-36.0) 11/08/18 07:40 RDW 13.4 % (11.5-14.0) 11/08/18 07:40 Plt Count 287 10^3/uL (150-450) 11/08/18 07:40 Lymph % (Auto) 33.3 % (13-45) 11/07/18 16:00 [place] % (Auto) 7.1 % (3-13) 11/07/18 16:00 Eos % (Auto) 3.0 % (0-6) 11/07/18 16:00 Baso % (Auto) 1.0 % (0-2) 11/07/18 16:00 Absolute Neuts (auto) 3.5 10^3/uL (1.7-8.2) 11/07/18 16:00 Absolute Lymphs (auto) 2.1 10^3/uL (0.5-4.7) 11/07/18 16:00 Absolute Monos (auto) 0.4 10^3/uL (0.1-1.4) 11/07/18 16:00 Absolute Eos (auto) 0.2 10^3/uL (0.0-0.6) 11/07/18 16:00 Absolute Basos (auto) 0.1 10^3/uL (0.0-0.2) 11/07/18 16:00 Seg Neutrophils % 55.6 % (42-78) 11/07/18 16:00 PT 13.7 SEC (11.4-15.4) 11/07/18 16:00 INR 1.05 11/07/18 16:00 Carbonic Acid 1.13 mmol/L (1.05-1.35) 11/08/18 22:40 HCO3/H2CO3 Ratio 19:1 11/08/18 22:40 ABG pH 7.39 (7.35-7.45) 11/08/18 22:40 ABG pCO2 37.4 mmHg (35-45) 11/08/18 22:40 ABG pO2 75.9 mmHg (80-100) L 11/08/18 22:40 ABG HCO3 22.2 mmol/L (20-24) 11/08/18 22:40 ABG Total CO2 23.4 mmol/L (21-25) 11/08/18 22:40 ABG O2 Saturation 95.2 % (94-98) 11/08/18 22:40 ABG Base Excess -2.2 mmol/L 11/08/18 22:40 VBG pH 7.41 (7.30-7.42) 11/07/18 16:00 VBG pCO2 42.9 mmHg (35-63) 11/07/18 16:00 VBG HCO3 26.5 mmol/L (20-32) 11/07/18 16:00 VBG Base Excess 1.6 mmol/L 11/07/18 16:00 FiO2 21% 11/08/18 22:40 Sodium 134.5 mmol/L (137-145) L 11/11/18 10:11 Potassium 3.4 mmol/L (3.6-5.0) L 11/11/18 10:11 Chloride 98 mmol/L (98-107) 11/11/18 10:11 Carbon Dioxide 22 mmol/L (22-30) 11/11/18 10:11 Anion Gap 15 (5-19) 11/11/18 10:11 BUN 15 mg/dL (7-20) 11/11/18 10:11 Creatinine 0.85 mg/dL (0.52-1.25) 11/11/18 10:11 Est GFR ( Amer) > 60 (>60) 11/11/18 10:11 Est GFR (MDRD) Non-Af > 60 (>60) 11/11/18 10:11 Glucose 324 mg/dL (75-110) H 11/11/18 10:11 POC Glucose 249 mg/dL (70-110) H 11/11/18 11:20 Hemoglobin A1c % 13.9 % (4.7-6.0) H 11/08/18 07:40 Lactic Acid 2.1 mmol/L (0.7-2.1) 11/08/18 07:40 Calcium 9.6 mg/dL (8.4-10.2) 11/11/18 10:11 Total Bilirubin 0.6 mg/dL (0.2-1.3) 11/08/18 07:40 Direct Bilirubin 0.1 mg/dL (0.0-0.4) 11/08/18 07:40 Neonat Total Bilirubin Not Reportable 11/08/18 07:40 Neonat Direct Bilirubin Not Reportable 11/08/18 07:40 Neonat Indirect Bili Not Reportable 11/08/18 07:40 AST 39 U/L (14-36) H 11/08/18 07:40 ALT 26 U/L (<35) 11/08/18 07:40 Alkaline Phosphatase 78 U/L (38-126) 11/08/18 07:40 Creatine Kinase 65 U/L (30-135) 11/08/18 07:40 CK-MB (CK-2) 0.29 ng/mL (<4.55) 11/08/18 07:40 Troponin I 0.034 ng/mL 11/08/18 07:40 Total Protein 6.9 g/dL (6.3-8.2) 11/08/18 07:40 Albumin 3.8 g/dL (3.5-5.0) 11/08/18 07:40 Triglycerides 586 mg/dL (<150) H 11/08/18 07:40 Cholesterol 260.58 mg/dL (0-200) H 11/08/18 07:40 LDL Cholesterol Direct 149 mg/dL (<100) H 11/08/18 07:40 VLDL Cholesterol, Calc UNABLE TO CALCULATE 11/08/18 07:40 HDL Cholesterol 32 mg/dL (>40) L 11/08/18 07:40 TSH 1.78 uIU/mL (0.47-4.68) 11/08/18 07:40 Free T4 1.12 ng/dL (0.78-2.19) 11/07/18 19:40 Free T3 pg/mL 3.11 pg/mL (2.77-5.27) 11/07/18 19:40 Urine Color YELLOW 11/07/18 17:31 Urine Appearance SLIGHTLY-CLOUDY 11/07/18 17:31 Urine pH 6.0 (5.0-9.0) 11/07/18 17:31 Ur Specific [place] 1.017 11/07/18 17:31 Urine Protein 30 mg/dL (NEGATIVE) H 11/07/18 17:31 Urine Glucose (UA) >=500 mg/dL (NEGATIVE) H 11/07/18 17:31 Urine Ketones TRACE mg/dL (NEGATIVE) H 11/07/18 17:31 Urine Blood NEGATIVE (NEGATIVE) 11/07/18 17:31 Urine Nitrite NEGATIVE (NEGATIVE) 11/07/18 17:31 Urine Bilirubin NEGATIVE (NEGATIVE) 11/07/18 17:31 Urine Urobilinogen NEGATIVE mg/dL (<2.0) 11/07/18 17:31 Ur Leukocyte Esterase TRACE (NEGATIVE) H 11/07/18 17:31 Urine WBC (Auto) 23 /HPF 11/07/18 17:31 Urine RBC (Auto) 9 /HPF 11/07/18 17:31 Urine Bacteria (Auto) 1+ /HPF 11/07/18 17:31 Squamous Epi Cells Auto 8 /HPF 11/07/18 17:31 Urine Mucus (Auto) RARE /LPF 11/07/18 17:31 Urine Yeast (Budding) PRESENT /HPF 11/07/18 17:31 Urine Ascorbic Acid NEGATIVE (NEGATIVE) 11/07/18 17:31 11/07/18 11/07/18 11/07/18 16:00 19:40 19:40 CK-MB (CK-2) 0.35 Troponin I 0.034 0.038 Cancelled 11/08/18 11/08/18 01:50 07:40 CK-MB (CK-2) 0.37 0.29 Troponin I 0.037 0.034 Impressions: Head CT 11/07/18 17:38 IMPRESSION: NO ACUTE INTRACRANIAL FINDINGS. EVIDENCE OF ACUTE STROKE: NO. Head MRI 11/08/18 00:00 IMPRESSION: No acute findings. Old infarct in the anterior right thalamus/medial aspect internal capsule with atrophy of the left cerebral peduncle. EVIDENCE OF ACUTE STROKE: NO. Carotid Doppler Study 11/09/18 00:00 IMPRESSION: NO HEMODYNAMICALLY SIGNIFICANT STENOSIS. Stroke Is this a Stroke Patient?: No Acute Heart Failure - Is this a Heart Failure Patient?: No LVEF < 40%?: No- if no continue to question #3
== END 2018-11-11 15:30 | disposition home or self-care (01) | DRG 65 ==
LOC: ER 15:42 → EH 23:15 → 3N 11-08 01:05
PROVIDERS: ADMIT Emergency Medicine; ATTEND Emergency Medicine
DX: I63.9 Cerebral infarction, unspecified (principal); N39.0 Urinary tract infection, site not specified; R55 Syncope and collapse; R40.0 Somnolence; E78.5 Hyperlipidemia, unspecified; I10 Essential (primary) hypertension; I16.0 Hypertensive urgency; T38.3X6A Underdosing of insulin and oral hypoglycemic [antidiabetic] drugs, initial encounter; T45.526A Underdosing of antithrombotic drugs, initial encounter; E11.9 Type 2 diabetes mellitus without complications; H53.2 Diplopia; Z86.73 Personal history of transient ischemic attack (TIA), and cerebral infarction without residual deficits; Z79.82 Long term (current) use of aspirin; Z82.49 Family history of ischemic heart disease and other diseases of the circulatory system; Z83.3 Family history of diabetes mellitus; Z91.120 Patient's intentional underdosing of medication regimen due to financial hardship; Z59.7 Insufficient social insurance and welfare support; Z79.4 Long term (current) use of insulin; Z79.899 Other long term (current) drug therapy
CPT/HCPCS: 36415; 36600; 70450; 70551; 80048; 80053; 80061; 81001; 82550; 82553; 82803; 82962; 83036; 83605; 84439; 84443; 84481; 84484; 85025; 85027; 85610; 87040; 87086; 87088; 87186; 93005; 93010; 93306; 93880; 99285; J0696; J1644; J1815; J3490; J7030